=== PATIENT | male | born 1990 | race Caucasian/White ===

== ENCOUNTER → 2023-04-02 | Day surgery (SDC) | payer BC ==
[~2023-04-02] MED LIST: Lactated Ringers 1,000 ML IV SCH; Sodium Chloride 0.9% 10 ML Syringe FLUSH PRN; ceFAZolin 2 GM Vial IVPUSH ONE
[2023-04-02] MEDS: Ondansetron 4 MG/2 ML SDV IVPUSH PRN ×2 (12:08→16:02)
[2023-04-02] MEDS: Morphine 4 MG/ML VIAL IV PRN ×2 (12:19→17:35)
[2023-04-02] MEDS: Acetaminophen/oxyCODONE 325-5 MG Tab PO PRN ×2 (15:00→21:37)
[2023-04-03] MEDS: Acetaminophen/oxyCODONE 325-5 MG Tab PO PRN (04:13)
== END | disposition home or self-care (01) ==
LOC: CC.SDS 07:49
PROVIDERS: ATTEND Surgery
DX: K80.10 Calculus of gallbladder with chronic cholecystitis without obstruction (principal); K75.81 Nonalcoholic steatohepatitis (NASH); K74.00 Hepatic fibrosis, unspecified; K21.9 Gastro-esophageal reflux disease without esophagitis; E78.5 Hyperlipidemia, unspecified; E66.9 Obesity, unspecified; Z79.899 Other long term (current) drug therapy; Z80.0 Family history of malignant neoplasm of digestive organs
CPT/HCPCS: 00790; A9270-GY; J0690; J2270; J2405; J7030; J7120